=== PATIENT | female | born 1960 | race Caucasian/White ===

== ENCOUNTER → 2019-04-13 09:13 | Outpatient (CLI) | payer MEDICAID ==
--- NOTE | 2019-04-16 14:31 | ST ---
PATIENT:JOHN BENITES MEDICAL RECORD: [id number] SEX: F LOCATION:[facility] ORDER #: ADMISSION DATE: 04/13/19 AGE OF PATIENT: 58 REFERRING PHYSICIAN: INTERPRETING PHYSICIAN: RADHA GONGORA MD DATE OF SERVICE: 04/13/2019 PROCEDURE: Nuclear stress test. INDICATION: Angina, shortness of breath, hyperlipidemia. She was exercised on standard Lexiscan protocol with 26 mCi of sestamibi injected at peak stress, 9 mCi used previously for rest images. FINDINGS: Gated SPECT reveals preserved ejection fraction at 67% with good wall motion and thickening and brightening throughout all segments. SPECT imaging: Cardiolite was used as myocardial fusion agent. There is homogeneous uptake throughout all segments at rest and stress with no evidence of inducible ischemia or previous infarction. OVERALL IMPRESSION: 1. This is a normal nuclear stress test with no evidence of inducible ischemia or previous infarction. 2. Gated SPECT reveals a preserved ejection fraction at 67%. In this patient with ongoing symptomatology, the current scan does not suggest the presence of hemodynamically significant coronary artery disease. Evaluate noncardiac etiology of chest pain. TRANSINT:[id number] Voice Confirmation ID: [id number] DOCUMENT ID: [id number] cc: Nadia Zavaleta, RADHA Mckeon MD at 1431 CC: [id number] DICTATION DATE: 04/15/19 0936 PSYCHOLOGY INTERN: 04/16/19 0112 DEP CLI 04/13/19 [place] [id number]
== END | disposition home or self-care (01) ==
LOC: D.HCCARDIO 09:13
PROVIDERS: ATTEND Internal Medicine Interventional Cardiology
DX: I20.9 Angina pectoris, unspecified (principal)

== ENCOUNTER 2020-11-30 15:00 | Outpatient (CLI) | payer BC | END 2020-11-30 23:59 | disposition home or self-care (01) | LOC: D.MAMMO 15:00 | PROVIDERS: ATTEND Family Medicine | DX: Z12.31 Encounter for screening mammogram for malignant neoplasm of breast (principal) ==

== ENCOUNTER → 2020-12-12 10:43 | Outpatient (CLI) | payer BC | END | disposition home or self-care (01) | LOC: D.US 10:43 | PROVIDERS: ATTEND Family Medicine | DX: R92.8 Other abnormal and inconclusive findings on diagnostic imaging of breast (principal) ==

== ENCOUNTER 2021-01-11 06:31 | Day surgery (SDC) | payer BC ==
[~2021-01-11] VITALS: Ht 152.4 cm; Wt 50.9 kg
[2021-01-11 06:50] LABS: BASOPHILS 0.2 % (0-2); EOSINOPHILS 3.5 % (0-7); HEMOGLOBIN 12.4 g/dL (12-16); LYMPHOCYTES 16.6 % (15-50); MCHC 33.5 g/dL (31.0-37.0); MCV 95.7 fL (80.0-100.0); MEAN PLATELET VOLUME 7.3 fL (7.4-10.4); MONOCYTES 5.7 % (2-11); PLATELET COUNT 367 10x3/uL (130-400); RBC 3.87 10x6/uL (4.00-5.40); RDW 13.1 % (11.5-14.5); WBC 8.1 10x3/uL (4.8-10.8)
[2021-01-11 07:09] LABS: ANION GAP 11.8 mmol/L (8-16); CALCIUM 9.6 mg/dL (8.5-10.1); CARBON DIOXIDE 30.7 mmol/L (21.0-32.0); CREATININE - SERUM 1.1 mg/dL (0.6-1.3); POTASSIUM - SERUM 3.5 mmol/L (3.5-5.1)
[2021-01-11 07:21] LABS: APTT 38.4 SECONDS (22.8-39.4); INR 1.15 (0.85-1.17); PROTIME 13.6 SECONDS (11.6-15.0)
[2021-01-11] MEDS ORDERED: LIPITOR20 MG PO (07:44)
[2021-01-11] MEDS ORDERED: ZETIA10 MG PO (07:44)
[2021-01-11] MEDS ORDERED: CELEXA10 MG PO (07:45)
[2021-01-11] MEDS ORDERED: VITAMIN D325 MC1 PO (07:46)
[2021-01-11 07:59] VITALS: BP 138/74; Ht 152.4 cm; Wt 50.9 kg
--- NOTE | 2021-01-11 14:32 | NUR ---
1235 IV REMOVED AND CXR NOTED. INSTRUCTIONS GIVEN. 1300 D/C HOME
--- NOTE | 2021-01-11 14:39 | NUR ---
1235 IV REMOVED AND PRESSURE HELD. INSTRUCTIONS GIVEN.
== END 2021-01-11 13:00 | disposition home or self-care (01) ==
LOC: D.CT 06:31
PROVIDERS: General Practice; ATTEND Internal Medicine Hematology & Oncology
DX: C50.211 Malignant neoplasm of upper-inner quadrant of right female breast (principal); N63.12 Unspecified lump in the right breast, upper inner quadrant; R91.8 Other nonspecific abnormal finding of lung field

== ENCOUNTER 2021-01-17 07:42 | Day surgery (SDC) | payer BC ==
--- NOTE | 2021-01-16 12:01 | NUR ---
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
[~2021-01-17] VITALS: Ht 152.4 cm; Wt 2.3 kg
[~2021-01-17 07:42] MED LIST: CELEXA10 MG PO; LIPITOR20 MG PO; VITAMIN D325 MC1 PO; ZETIA10 MG PO
[2021-01-17 08:16] LABS: ANION GAP 10.1 mmol/L (8-16); CREATININE - SERUM 1.1 mg/dL (0.6-1.3); POTASSIUM - SERUM 3.1 mmol/L (3.5-5.1)
[2021-01-17 08:47] VITALS: BP 131/56; Ht 152.4 cm; Wt 2.3 kg
[2021-01-17 09:20] LABS: BASOPHILS 0.4 % (0-2); EOSINOPHILS 2.9 % (0-7); HEMATOCRIT 35.1 % (36.0-48.0); HEMOGLOBIN 11.9 g/dL (12-16); LYMPHOCYTES 15.2 % (15-50); MCH 32.2 pg (26.0-34.0); MCHC 33.9 g/dL (31.0-37.0); MCV 94.8 fL (80.0-100.0); MEAN PLATELET VOLUME 8.6 fL (7.4-10.4); NEUTROPHILS 76.5 % (40-80); PLATELET COUNT 326 10x3/uL (130-400); RBC 3.71 10x6/uL (4.00-5.40); RDW 12.9 % (11.5-14.5); WBC 7.5 10x3/uL (4.8-10.8)
[2021-01-17 09:32] LABS: INR 1.14 (0.85-1.17); PROTIME 13.5 SECONDS (11.6-15.0)
--- NOTE | 2021-01-17 12:16 | NUR ---
1150 SEE POST PROCEDURE CHECKLIST FOR VITAL SIGN TRENDS. 1212 REG DIET ORDERED.
--- NOTE | 2021-01-17 16:19 | NUR ---
1535 IV HAS BEEN PREVIOUSLY DC'D WITH CATH INTACT. PT. RECEIVED HER DISCHARGE INSTRUCTIONS, VOICED UNDERSTANDING, IS DRESSED AND READY TO BE RELEASED IN WC WITH SPOUSE CLINICAL TRIALS ASSISTANT HOME.
== END 2021-01-17 15:35 | disposition home or self-care (01) ==
LOC: D.SP 07:42 → D.CT 10:00 → D.SP 10:00
PROVIDERS: General Practice; ATTEND Internal Medicine Hematology & Oncology
DX: K76.9 Liver disease, unspecified (principal)

== ENCOUNTER 2021-01-27 05:38 | Day surgery (SDC) | payer BC ==
[~2021-01-27] VITALS: Ht 152.4 cm; Wt 50.5 kg
--- NOTE | ~2021-01-27 | OP ---
PATIENT NAME: DANIKA BENITES MEDICAL RECORD: [id number] :64 LOCATION:[facility] ADMISSION DATE: SURGEON: CHEKO CAO MD DATE OF OPERATION: 01/27/2021 PREOPERATIVE DIAGNOSES: 1. Right breast cancer. 2. Stage IV right lung cancer. 3. Tobacco dependence syndrome. POSTOPERATIVE DIAGNOSES: 1. Right breast cancer. 2. Stage IV right lung cancer. 3. Tobacco dependence syndrome. PROCEDURE: 1. Left subclavian vein PowerPort placement. 2. Fluoroscopic interpretation. SURGEON: Cheko Cao MD REPORT OF PROCEDURE: The patient's left chest was prepped and draped in sterile fashion. A needle was used to cannulate the left subclavian vein. The guidewire was advanced with ease. Fluoroscopy was used to note that the wire was in good position in the venous system. A skin incision was made on the left superior lateral chest and a subcutaneous pouch was made over the pectoral fascia. The catheter was tunneled between this pouch and the wire exit site. The port was then sutured to the pectoral fascia with interrupted 2-0 Prolenes times 2. The catheter was cut with a beveled tip at 20 cm. The dilator trocar device was placed over the wire and the wire and dilator were removed. The catheter tip was advanced through the trocar and the trocar was then removed. The fluoroscopy was used to note that the catheter tip rested in good position at the right atrial superior vena caval junction. The catheter aspirated nonpulsatile dark blood and flushed easily with heparinized saline. The subcutaneous tissues were reapproximated with interrupted 3-0 Vicryl and skin was closed with running subcutaneous 5-0 Monocryl. COMPLICATIONS: None. CONDITION: Stable. ANESTHESIA: General endotracheal. BLOOD LOSS: Minimal. TRANSINT:[id number] Voice Confirmation ID: [id number] DOCUMENT ID: [id number] OPERATIVE REPORT [id number] KAMARI,DANIKA MUCHEKO MORENO MD CC: PURA HEDRICK [id number] DICTATION DATE: 01/27/2139 DIRECT CARE SPECIALIST: 01/27/21 0854 [facility] [address] [place] [id number]
[~2021-01-27 05:38] MED LIST changes: +ASCORBIC ACID500 MG PO; +MULTI-DAY VITAM1 TAB PO
[2021-01-27 06:27] VITALS: BP 127/64; Ht 152.4 cm; Wt 50.5 kg
[2021-01-27] MEDS ORDERED: HYDROCODON-ACE1 EAC7 PO (08:39)
--- NOTE | 2021-01-27 09:47 | NUR ---
0945 INSTRUCTIONS GIVEN. ICE PACK APPLIED TO SITE.
--- NOTE | 2021-01-27 10:11 | NUR ---
1010 IV REMOVED AND PRESURE HELD INSTRUCTIONS GIVEN.
== END 2021-01-27 10:45 | disposition home or self-care (01) ==
LOC: D.OPS 05:38
PROVIDERS: ATTEND Surgery
DX: C50.211 Malignant neoplasm of upper-inner quadrant of right female breast (principal); C34.11 Malignant neoplasm of upper lobe, right bronchus or lung; C78.7 Secondary malignant neoplasm of liver and intrahepatic bile duct; F17.200 Nicotine dependence, unspecified, uncomplicated